=== PATIENT | male | born 1990 | race Two or more races ===

== ENCOUNTER 2018-07-23 00:40 | Emergency (ER) | payer SELFPAY ==
[~2018-07-23] VITALS: Ht 182.9 cm; Wt 113.4 kg
--- NOTE | 2018-07-23 00:45 | NUR ---
PT BIBRA FROM HOME. +ETOH. PT AAOX3. RESPIRATIONS EVEN AND UNLABORED. SKIN WARM AND INTACT. NO ACUTE DISTRESS NOTED. PT PLACED ON CONTINUOUS MONTIOR, WILL CONTINUE TO MONITOR.
--- NOTE | 2018-07-23 02:33 | NUR ---
Patient discharged to home in stable condition. Written and verbal after care instructions given. Patient verbalizes understanding of instruction. Pt ambulatory with a steady gait. Pt left with father
[2018-07-23 02:36] VITALS: BP 138/76
== END 2018-07-23 02:37 | disposition home or self-care (01) ==
LOC: ER 00:47
DX: F10.129 Alcohol abuse with intoxication, unspecified (principal); R11.2 Nausea with vomiting, unspecified; Y90.9 Presence of alcohol in blood, level not specified